=== PATIENT | female | born 1945 | race Caucasian/White ===

== ENCOUNTER 2021-08-19 17:51 | Inpatient (IN) | payer MEDICARE, BC ==
[~2021-08-19] VITALS: Ht 167.6 cm; Wt 60.3 kg
[2021-08-19] MEDS ORDERED: AMIO200T5 PO (18:07)
[2021-08-19] MEDS ORDERED: FURO20TA4 PO (18:07)
[2021-08-19] MEDS ORDERED: LEVO100T9 PO (18:07)
[2021-08-19] MEDS ORDERED: VALS80TA2 PO (18:07)
[2021-08-19] MEDS ORDERED: ROSU40TA23 PO (18:07)
[2021-08-19] MEDS ORDERED: AMLO-213 PO (18:07)
--- NOTE | 2021-08-19 18:13 | NUR ---
PT ALERT OX3. STATES SHE FEELS WEAK AT THIS TIME BUT LESS WEAK THAN EARLIER TODAY. PT STATES SHE SMOKES 37 YEARS AGO BUT DOES NOT SMOKE ANY MORE. RIGHT AC [address], WAS INSERTED BY RESCUE TEAM EN ROUTE TO HOSPITAL. WILL CONTINUE TO MONITOR.
[2021-08-19] MEDS ORDERED: IV NS 0.9% 1,000 ML BAG IV ONE (18:30)
--- NOTE | 2021-08-19 18:53 | NUR ---
PT'S DAUGHTER TETE UPDATED ON STATUS, SHE STATED SHE WOULD GO HOME AND GET PATIENTS CELL PHONE SO SHE HAS IT.
[2021-08-19 19:38] LABS: CALCIUM, SERUM 7.6 mg/dL (8.5-10.1); CARBON DIOXIDE 27 mmol/L (21-32); CHLORIDE 108 mmol/L (98-107); CREATININE 1.1 mg/dL (0.6-1.3); GLUCOSE 94 mg/dL (74-106); POTASSIUM 3.6 mmol/L (3.5-5.1); SODIUM SERUM 143 mmol/L (136-145); UREA NITROGEN, BLOOD 25 mg/dL (7-18)
--- NOTE | 2021-08-19 19:41 | NUR ---
LACTIC ACID 2.3
[2021-08-19 19:46] LABS: ALANINE AMINOTRANSFERASE 18 U/L (12-78); ALKALINE PHOSPHATASE 56 U/L (46-116); ASPARTATE AMINOTRANSFERASE 17 U/L (15-37); BILIRUBIN,DIRECT 0.1 mg/dL (0.0-0.2); BILIRUBIN,TOTAL 0.1 mg/dL (0.2-1.0); TOTAL PROTEIN, SERUM 5.8 g/dL (6.4-8.2)
[2021-08-19 19:56] LABS: BASOPHILS % (AUTO) 0.9 % (0.0-2.0); EOSINOPHILS % (AUTO) 2.9 % (0.0-6.0); HEMATOCRIT 26 % (33-45); HEMOGLOBIN 8.4 g/dL (11.5-14.8); LYMPHOCYTES # (AUTO) 0.4 K/uL (0.8-4.8); MEAN CORPUSCULAR HGB CONC 33 g/dl (31.0-36.0); MEAN CORPUSCULAR VOLUME 109 fL (82-100); MONOCYTES # (AUTO) 0.5 K/uL (0.1-1.30); MONOCYTES % (AUTO) 12.3 % (2.0-12.0); NEUTROPHILS % (AUTO) 74.9 % (43.0-81.0); PLATELET COUNT (AUTO) 371 K/uL (150-450); RED BLOOD CELL COUNT(AUTO) 2.38 MIL/uL (4.0-5.2)
--- NOTE | 2021-08-19 20:44 | NUR ---
REPORT GIVEN TO CHICHI SAUCEDA FOR [facility]
[2021-08-19] MEDS ORDERED: MORPHINE SULFATE INJ 2 MG/ML DISP.SYRIN IV PRN (21:00)
[2021-08-19] MEDS ORDERED: ONDANSETRON HCL/PF 4 MG/2 ML VIAL IVP PRN (21:00)
--- NOTE | 2021-08-19 21:00 | NUR ---
[facility] SWAB COLLECTED AND SENT TO LAB. PATIENT'S BELONGINGS LIST DONE.
[2021-08-19 21:01] VITALS: BP 129/61
--- NOTE | 2021-08-19 21:11 | NUR ---
PT TRANSPORTED TO UNIT ON [facility] WITH EMT AND AND RN AT BEDSIDE W/ ACLS PROTOCOL. NAD NOTED DURING TRANSPORT. PT AMBULATED FROM GURNEY TO BED ON STEADY GAIT W/O ASSIST
[2021-08-19 21:44] LABS: THYROID STIMULATING HORMONE 4.329 uIU/mL (0.358-3.74)
[2021-08-19 22:04] LABS: HEMOGLOBIN 9.5 g/dL (11.5-14.8)
[2021-08-19] MEDS: ACETAMINOPHEN 325 MG TABLET PO PRN (22:44)
[2021-08-19] MEDS: PANTOPRAZOLE 40 MG VIAL IV SCH (22:44)
[2021-08-19] MEDS ORDERED: SOD FERRIC GLUC 125 MG in IV NS 0.9% 100 ML IV SCH (23:00)
[2021-08-19] MEDS ORDERED: IV NS 0.9% 1,000 ML IV ONE (23:00)
[2021-08-19] MEDS ORDERED: SOD FERRIC GLUC 62.5 MG/5 ML AMPUL IV ONE (23:40)
[2021-08-20] VITALS: BP 132/64
[2021-08-20 04:00] VITALS: BP 131/62
--- NOTE | 2021-08-20 05:43 | NUR ---
PATIENT ACCIDENTALLY PULLED HER IV OUT, BLEEDING STOPPED.
[2021-08-20 06:41] LABS: BASOPHILS % (AUTO) 0.5 % (0.0-2.0); EOSINOPHILS % (AUTO) 2.6 % (0.0-6.0); HEMATOCRIT 27 % (33-45); LYMPHOCYTES # (AUTO) 0.4 K/uL (0.8-4.8); MEAN CORPUSCULAR HGB CONC 33 g/dl (31.0-36.0); MEAN CORPUSCULAR VOLUME 109 fL (82-100); MONOCYTES # (AUTO) 0.8 K/uL (0.1-1.30); MONOCYTES % (AUTO) 14.6 % (2.0-12.0); NEUTROPHILS # (AUTO) 3.9 K/uL (1.8-8.9); NEUTROPHILS % (AUTO) 74.3 % (43.0-81.0); PLATELET COUNT (AUTO) 350 K/uL (150-450); RED BLOOD CELL COUNT(AUTO) 2.51 MIL/uL (4.0-5.2); WHITE BLOOD COUNT (AUTO) 5.2 K/uL (4.3-11.0)
[2021-08-20] MEDS ORDERED: SOD FERRIC GLUC 125 MG in IV NS 0.9% 100 ML IV SCH ×2 (07:19→14:00)
[2021-08-20 07:29] LABS: ALBUMIN 3.2 g/dL (3.4-5.0); BILIRUBIN,TOTAL 0.2 mg/dL (0.2-1.0); CALCIUM, SERUM 8.1 mg/dL (8.5-10.1); CREATININE 0.8 mg/dL (0.6-1.3); MAGNESIUM 2.2 mg/dL (1.8-2.4); PHOSPHORUS 3.8 mg/dL (2.5-4.9); POTASSIUM 4.6 mmol/L (3.5-5.1)
[2021-08-20] MEDS ORDERED: LEVOTHYROXINE SODIUM 100 MCG TABLET PO SCH (07:30)
--- NOTE | 2021-08-20 07:30 | NUR ---
TAX SERVICES PROFESSIONAL NOTES PT IN BED, AWAKE, ALERT AND ORIENTED, NO COMPLAINT OF PAIN OR ANY DISCOMFORT, RESPIRATIONS NORMAL, CALL LIGHT WITHIN REACH, KEPT WARM AND COMFORTABLE.
[2021-08-20 08:00] VITALS: BP 124/60
[2021-08-20] MEDS ORDERED: AMIODARONE HCL 200 MG TABLET PO SCH (09:00)
[2021-08-20] MEDS ORDERED: FUROSEMIDE 20 MG TABLET PO SCH (09:00)
[2021-08-20] MEDS ORDERED: LOSARTAN POTASSIUM 50 MG TABLET PO SCH (09:00)
[2021-08-20] MEDS ORDERED: ATORVASTATIN 40 MG TABLET PO SCH (09:00)
[2021-08-20] MEDS ORDERED: AMLODIPINE BESYLATE 10 MG TABLET PO SCH (09:00)
[2021-08-20] MEDS: ACETAMINOPHEN 325 MG TABLET PO PRN (09:28)
[2021-08-20] MEDS: PANTOPRAZOLE 40 MG VIAL IV SCH ×2 (09:37→16:29)
--- NOTE | 2021-08-20 11:08 | NUR ---
ASSEMBLER FOR PULLER OVER MACHINE RUPESH ALERT AND ORIENTED X4. PT. ABLE TO VERBALIZE NEEDS. ON RA. PT. ABLE TO FEED SELF AND ALL ORAL MEDS TAKEN.
[2021-08-20 12:00] VITALS: BP 129/55
[2021-08-20 15:18] LABS: HEMOGLOBIN 9.2 g/dL (11.5-14.8)
[2021-08-20 16:00] VITALS: BP 124/59
--- NOTE | 2021-08-20 18:32 | NUR ---
SOCK IRONER NOTES PT IN BED,RESTING, NO COMPLAINT AT THIS TIME, ABLE TO AMBULATE TO THE BATHROOM WITH STEADY GAIT, NO S/S OF BLEEDING, MONITORED H/H CLOSELY, PM CARE PROVIDED, ALL NEEDS ATTENDED.
--- NOTE | 2021-08-20 19:10 | NUR ---
FLAP MAKER OPENING NOTES: RECEIVED PATIENT IN BED, AWAKE, A/O X4. NO S/S OF DISTRESS NOTED. NO COMPLAIN OF PAIN. CALL LIGHT WITHIN REACH. BED ALARM ON. BED IN LOWEST AND LOCKED POSITION. INSTRUCTED PATIENT RE: TO GET UP SLOWLY, SIT FIRST BEFORE STANDING UP, WALK SLOWLY AND TO CALL FOR ASSISTANCE TO PREVENT DIZZINESS EPISODE, PATIENT VERBALIZED UNDERSTANDING. ON O2 AT 2L/MIN NASAL CANNULA. ON TELE MONITOR WITH SINUS 77.
[2021-08-20 20:00] VITALS: BP 126/59
--- NOTE | 2021-08-20 21:19 | NUR ---
PATIENT WANTS TO LEAVE JAN GAXIOLA. EXPLAINED TO THE PATIENT THE IMPORTANCE AND BENEFIT OF STAYING. PATIENT STILL WANTS TO LEAVE. CHARGE NURSE IVAN MADE AWARE. PER PATIENT DAUGHTER WILL PICK HER UP.
--- NOTE | 2021-08-20 21:26 | NUR ---
INFORMED DR JACOBSEN.
--- NOTE | 2021-08-20 21:34 | NUR ---
PATIENT SIGNED THE AMA FORM AND ATTACHED TO THE CHART. CHARGE NURSE AWARE. IV REMOVED.
--- NOTE | 2021-08-20 22:22 | NUR ---
no bleeding on the previous IV site. Dressing intact. Patient still waiting for her daughter.
== END 2021-08-20 23:20 | disposition left against medical advice (07) | DRG 641 ==
LOC: ER 17:55 → TELE 20:39
PROVIDERS: ADMIT Internal Medicine; ATTEND Internal Medicine
DX: E86.0 Dehydration (principal); E44.0 Moderate protein-calorie malnutrition; E87.2 Acidosis; D50.9 Iron deficiency anemia, unspecified; I78.0 Hereditary hemorrhagic telangiectasia; E03.9 Hypothyroidism, unspecified; I48.91 Unspecified atrial fibrillation; Z20.822 Contact with and (suspected) exposure to COVID-19; I11.0 Hypertensive heart disease with heart failure; I50.9 Heart failure, unspecified; Z79.899 Other long term (current) drug therapy; E78.5 Hyperlipidemia, unspecified; E88.09 Other disorders of plasma-protein metabolism, not elsewhere classified
CPT/HCPCS: 36415; 71045-TC; 80048-TC; 80053-TC; 80076-TC; 82728-TC; 83540-TC; 83605-TC; 83735-TC; 84100-TC; 84439-TC; 84443-TC; 84484-TC; 85025-TC; 85027-TC; 86850-TC; 87040-TC; 87081-TC; 93307-TC; 97116-TC; 97530-TC; C9113; C9803; G0378; J2916; J7030; J7050